=== PATIENT | male | born 1945 | race Caucasian/White ===

== ENCOUNTER → 2018-07-14 | Outpatient (CLI) | payer OTHER | END | disposition home or self-care (01) | LOC: PVL 11:39 | PROVIDERS: ATTEND Psychiatry & Neurology Neurology | DX: I69.30 Unspecified sequelae of cerebral infarction (principal) | CPT/HCPCS: 93880 ==

== ENCOUNTER 2019-08-17 13:34 | Inpatient (IN) | payer OTHER ==
[~2019-08-17] VITALS: Ht 170.2 cm; Wt 87.1 kg
[2019-08-17 15:04] LABS: BASOPHILS % 0.9 % (0.0-2.0); EOSINOPHILS % 2.2 % (0.0-5.0); HEMATOCRIT. 35.4 % (42.0-52.0); HEMOGLOBIN. 11.9 g/dL (14.0-18.0); LYMPHOCYTES % 19.5 % (20.0-50.0); MEAN CORPUSCULAR VOLUME 92.2 fL (80.0-94.0); MEAN PLATELET VOLUME 8.3 fl (7.4-10.4); MONOCYTES % 13.3 % (2.0-8.0); NEUTROPHILS % 64.1 % (40.0-76.0); PLATELET 331 x1000/uL (130-400); RED BLOOD CELL COUNT 3.84 mill/uL (4.7-6.1); RED CELL DISTRIBUTION WIDTH 14.6 % (11.6-14.6)
[2019-08-17 15:08] LABS: CHLORIDE 109 mEq/L (98-107)
[2019-08-17 15:16] LABS: PHOSPHORUS 2.6 mg/dL (2.5-4.9)
[2019-08-17 15:37] LABS: CLARITY URINE CLEAR (CLEAR); COLOR URINE YELLOW (YELLOW); KETONES URINE TRACE (NEGATIVE); LEUKOCYTE ESTERASE URINE TRACE (NEGATIVE); NITRITE URINE NEGATIVE (NEGATIVE); OCCULT BLOOD URINE NEGATIVE (NEGATIVE); PH URINE 5.5 (4.5-8.0); PROTEIN URINE NEGATIVE (NEGATIVE); SPECIFIC GRAVITY URINE 1.019 (1.005-1.030)
[2019-08-17 22:58] VITALS: BP 140/92
[2019-08-17] MEDS ORDERED: LEVO125T8 PO (23:14)
[2019-08-17] MEDS ORDERED: AMLO2.5T45 PO (23:14)
[2019-08-18] VITALS: BP 148/77
[2019-08-18] MEDS ORDERED: ASPIRIN 81MG TABLET PO NR (00:30)
[2019-08-18] MEDS ORDERED: CLONIDINE 0.1MG TABLET PO PRN (00:30)
[2019-08-18] MEDS ORDERED: ACETAMINOPHEN 325MG TABLET PO PRN (00:30)
[2019-08-18 04:00] VITALS: BP 152/71
[2019-08-18] MEDS: PANTOPRAZOLE 40MG DR TABLET PO SCH (06:51)
[2019-08-18] MEDS: LEVOTHYROXINE SODIUM 125MCG TABLET PO SCH (06:51)
[2019-08-18 07:21] LABS: BASOPHILS % 0.7 % (0.0-2.0); EOSINOPHILS % 3.8 % (0.0-5.0); HEMATOCRIT. 32.9 % (42.0-52.0); HEMOGLOBIN. 11.1 g/dL (14.0-18.0); LYMPHOCYTES % 27.7 % (20.0-50.0); MEAN CORPUSCULAR HEMOGLOBIN 30.7 pg (28.0-32.0); MEAN CORPUSCULAR VOLUME 90.8 fL (80.0-94.0); MEAN PLATELET VOLUME 8.4 fl (7.4-10.4); MONOCYTES % 13.1 % (2.0-8.0); NEUTROPHILS % 54.7 % (40.0-76.0); PLATELET 294 x1000/uL (130-400); RED BLOOD CELL COUNT 3.63 mill/uL (4.7-6.1); RED CELL DISTRIBUTION WIDTH 14.5 % (11.6-14.6)
[2019-08-18 08:59] VITALS: BP 134/72
[2019-08-18] MEDS: AMLODIPINE 2.5MG TABLET PO SCH (09:37)
[2019-08-18] MEDS: ENOXAPARIN 40MG/0.4ML SYR SUBCUT SCH (09:38)
[2019-08-18] MEDS: ASPIRIN 81MG TABLET PO SCH (09:38)
[2019-08-18 12:24] VITALS: BP 105/66
[2019-08-18 13:23] LABS: INR 1.1; PROTHROMBIN TIME 11.1 sec (9.6-11.0)
[2019-08-18] MEDS ORDERED: ENOXAPARIN 40MG/0.4ML SYR SUBCUT SCH (15:00)
[2019-08-18 16:22] VITALS: BP 115/74
[2019-08-18 20:00] VITALS: BP 125/76
[2019-08-18] MEDS: ATORVASTATIN CALCIUM 10MG TABLET PO SCH (20:21)
[2019-08-19] VITALS: BP 144/84
[2019-08-19 01:47] LABS: *AMPHETAMINES SCREEN URINE NEGATIVE (NEGATIVE); *BARBITURATES SCREEN URINE NEGATIVE (NEGATIVE); *BENZODIAZEPINES SCREEN URINE NEGATIVE (NEGATIVE); *COCAINE SCREEN URINE NEGATIVE (NEGATIVE); METHADONE URINE SCREEN NEGATIVE (NEGATIVE); OPIATES URINE SCREEN NEGATIVE (NEGATIVE); PHENCYCLIDINE URINE SCREEN NEGATIVE (NEGATIVE)
[2019-08-19 01:48] LABS: CANNABINOID URINE SCREEN NEGATIVE (NEGATIVE)
[2019-08-19 04:00] VITALS: BP 128/73
[2019-08-19] MEDS: LEVOTHYROXINE SODIUM 125MCG TABLET PO SCH (06:16)
[2019-08-19] MEDS: PANTOPRAZOLE 40MG DR TABLET PO SCH (06:16)
[2019-08-19 08:04] VITALS: BP 144/81
[2019-08-19] MEDS: ASPIRIN 81MG TABLET PO SCH (08:23)
[2019-08-19] MEDS: AMLODIPINE 2.5MG TABLET PO SCH (08:24)
[2019-08-19] MEDS: ENOXAPARIN 40MG/0.4ML SYR SUBCUT SCH (08:24)
[2019-08-19 12:31] VITALS: BP 122/71
[2019-08-19] MEDS ORDERED: HYDROCODONE/ACETAMINOPHEN 5/325MG TABLET PO PRN (14:45)
[2019-08-19] MEDS ORDERED: DIPHENHYDRAMINE 50MG/ML VIAL IV PRN (14:45)
[2019-08-19] MEDS ORDERED: LORAZEPAM 2MG/ML CPJ IV PRN (14:45)
[2019-08-19] MEDS ORDERED: BISACODYL 10MG SUPP PR PRN (14:45)
[2019-08-19] MEDS ORDERED: IPRATROPIUM/ALBUTEROL 0.5-3(2.5)MG/3ML NEB HHN PRN (14:45)
[2019-08-19 16:10] VITALS: BP 120/76
[2019-08-19 19:14] VITALS: BP 120/76
[2019-08-19] MEDS: ATORVASTATIN CALCIUM 10MG TABLET PO SCH (20:22)
== END 2019-08-19 21:15 | DRG 65 ==
LOC: ER 13:34 → 8WST 18:24 → ENRESERV 21:25
PROVIDERS: ADMIT Internal Medicine; ATTEND Internal Medicine
PROC: 4A10X4Z Monitoring of Central Nervous Electrical Activity, External Approach (ICD-10-PCS; principal; 2019-08-19)
DX: I63.81 Other cerebral infarction due to occlusion or stenosis of small artery (principal); N17.9 Acute kidney failure, unspecified; G62.9 Polyneuropathy, unspecified; N18.9 Chronic kidney disease, unspecified; I12.9 Hypertensive chronic kidney disease with stage 1 through stage 4 chronic kidney disease, or unspecified chronic kidney disease; D64.9 Anemia, unspecified; E03.9 Hypothyroidism, unspecified; E86.0 Dehydration; I65.23 Occlusion and stenosis of bilateral carotid arteries; Z87.891 Personal history of nicotine dependence; Z86.73 Personal history of transient ischemic attack (TIA), and cerebral infarction without residual deficits
CPT/HCPCS: 36415; 70551; 71045; 80048; 80061; 80305; 81003; 83036; 83735; 84100; 84443; 92523; 93005; 93306; 93880; 93970; 97162; 99285; J1650

== ENCOUNTER 2020-09-13 14:08 | Emergency (ER) | payer MEDICARE, OTHER ==
[~2020-09-13] VITALS: Ht 170.2 cm; Wt 82.0 kg
[~2020-09-13 14:08] MED LIST: AMLO2.5T45 PO; LEVO125T8 PO
[2020-09-13 14:25] VITALS: BP 97/33
[2020-09-13] MEDS ORDERED: CLONIDINE 0.1MG TABLET PO PRN (16:45)
[2020-09-13] MEDS ORDERED: ONDANSETRON HCL 4MG/2ML INJ IV PRN (16:45)
[2020-09-13] MEDS ORDERED: ACETAMINOPHEN 325MG TABLET PO PRN (16:45)
[2020-09-13 17:08] LABS: BASOPHILS % 0.8 % (0.0-2.0); CHLORIDE 109 mEq/L (98-107); EOSINOPHILS % 3.4 % (0.0-5.0); HEMATOCRIT. 30.9 % (42.0-52.0); HEMOGLOBIN. 9.9 g/dL (14.0-18.0); LYMPHOCYTES % 17.7 % (20.0-50.0); MEAN CORPUSCULAR HEMOGLOBIN 26.5 pg (28.0-32.0); MEAN CORPUSCULAR VOLUME 82.9 fL (80.0-94.0); MEAN PLATELET VOLUME 7.8 fl (7.4-10.4); MONOCYTES % 13.2 % (2.0-8.0); NEUTROPHILS % 64.9 % (40.0-76.0); PLATELET 364 x1000/uL (130-400); RED BLOOD CELL COUNT 3.73 mill/uL (4.7-6.1)
[2020-09-13 17:12] LABS: ETHANOL BLOOD < 10 mg/dL
[2020-09-13 17:15] LABS: LDL CHOLESTEROL 92 mg/dL (5-100)
[2020-09-13 17:47] LABS: PROTHROMBIN TIME 10.9 sec (9.6-11.0)
[2020-09-13 18:00] LABS: PLATELET ESTIMATE NORMAL
== END 2020-09-13 21:12 | disposition left against medical advice (07) ==
LOC: ER 14:08 → SUPCPDRO 16:56 → ER 21:12
DX: Z53.21 Procedure and treatment not carried out due to patient leaving prior to being seen by health care provider (principal); M79.604 Pain in right leg; Z91.81 History of falling
CPT/HCPCS: 36415; 80053; 80320; 83721; 84443; 84484; 85025; G0480

== ENCOUNTER 2021-08-07 18:58 | Emergency (ER) | payer MEDICARE ==
[~2021-08-07] VITALS: Ht 170.2 cm; Wt 84.0 kg
[2021-08-07] MEDS ORDERED: LIDOCAINE HCL/EPINEPHRINE 1%-EPI 1:100,000 20 ML VIAL INFIL ONE (19:45)
[2021-08-07] MEDS ORDERED: BACITRACIN ZINC OINT UDPKT TOP ONE (19:45)
[2021-08-07 21:35] VITALS: BP 140/76
== END 2021-08-07 22:09 | disposition home or self-care (01) ==
LOC: ER 18:58
DX: S01.81XA Laceration without foreign body of other part of head, initial encounter (principal); I10 Essential (primary) hypertension; W18.30XA Fall on same level, unspecified, initial encounter; Y93.89 Activity, other specified; Y92.89 Other specified places as the place of occurrence of the external cause; Y99.8 Other external cause status
CPT/HCPCS: 12013; 70450; 99284; J3490

== ENCOUNTER 2021-08-12 13:00 | Emergency (ER) | payer MEDICARE ==
[~2021-08-12] VITALS: Ht 170.2 cm; Wt 82.0 kg
[2021-08-12 14:45] VITALS: BP 136/89
== END 2021-08-12 17:01 | disposition home or self-care (01) ==
LOC: ER 13:00
DX: S01.81XD Laceration without foreign body of other part of head, subsequent encounter (principal); X58.XXXD Exposure to other specified factors, subsequent encounter
CPT/HCPCS: 99281

== ENCOUNTER 2021-08-16 17:31 | Emergency (ER) | payer MEDICARE ==
[~2021-08-16] VITALS: Ht 170.2 cm; Wt 100.0 kg
[2021-08-16 17:54] VITALS: BP 142/77
== END 2021-08-16 19:04 | disposition home or self-care (01) ==
LOC: ER 17:31
DX: Z48.02 Encounter for removal of sutures (principal)
CPT/HCPCS: 99281